=== PATIENT | male | born 1965 | race Caucasian/White ===

== ENCOUNTER → 2017-03-24 | Outpatient (CLI) | payer BC ==
--- NOTE | 2017-03-24 16:30 | KCIC ---
CT of the head without contrast, 03/24/2017: HISTORY: Postconcussive syndrome, blurred vision The ventricles are within normal limits in size. There is no shift of the midline structures. There is no evidence of acute intracranial hemorrhage or mass effect. There is calcific plaquing of the distal internal carotid and right vertebral arteries. IMPRESSION: No acute intracranial abnormality is detected. Electronically signed by: Sancho Esparza MD (03/24/2017 4:27 PM) [facility]
== END | disposition home or self-care (01) ==
LOC: KCIC CT 15:31
PROVIDERS: ATTEND Family Medicine
DX: H53.8 Other visual disturbances (principal); F07.81 Postconcussional syndrome
CPT/HCPCS: 70450

== ENCOUNTER → 2017-04-01 | Outpatient (CLI) | payer BC ==
--- NOTE | 2017-04-01 17:15 | KCIC ---
BILATERAL DUPLEX CAROTID SONOGRAPHY History: Hypertension, visual changes, dizziness Technique: Duplex sonography of the cervical portion of both carotid arteries was performed. Real-time grayscale, color flow Doppler, and Doppler spectral waveform analysis is performed. Findings: Right side: Peak systolic flow velocity of the CCA is 90 cm/sec. Peak systolic flow velocity of the ICA is 88 cm/sec. The ICA/CCA ratio is 1. Peak end diastolic flow velocity of the ICA is 18 cm/sec. The peak systolic velocity of the ECA is 166 cm/sec. Mild echogenic plaque in the common carotid artery. Left side: Peak systolic flow velocity of the CCA is 77 cm/sec. Peak systolic flow velocity of the ICA is 81 cm/sec. The ICA/CCA ratio is 1.1. Peak end diastolic flow velocity of the ICA is 23 cm/sec. Peak systolic flow velocity of the ECA is 106 cm/sec. Mild echogenic plaque in the common carotid artery. Vertebral arteries: Bilateral vertebral arteries demonstrate antegrade flow. IMPRESSION: No hemodynamically significant internal carotid artery stenosis is identified. PQRS Compliance Statement - Stenosis calculations for CT, MR and conventional angiography are based upon measurement of the distal ICA diameter in accordance with the NASCET methodology. Stenosis calculations for carotid ultrasound studies are derived from validated velocity criteria which are known to correlate with the NASCET methodology. Electronically signed by: Brent Lopez MD (04/01/2017 5:12 PM) [id number]
== END | disposition home or self-care (01) ==
LOC: KCIC US 14:43
PROVIDERS: ATTEND Family Medicine
DX: I65.23 Occlusion and stenosis of bilateral carotid arteries (principal); I10 Essential (primary) hypertension; R42 Dizziness and giddiness
CPT/HCPCS: 93880

== ENCOUNTER 2018-02-04 12:49 | Inpatient (IN) | payer BC ==
[~2018-02-04] VITALS: Ht 177.8 cm; Wt 121.6 kg
[2018-02-04] MEDS ORDERED: ASPIRIN CHEWABLE 81 MG TABLET. PO ONE (13:00)
--- NOTE | 2018-02-04 13:10 | PHYS DOC ---
Adult General Chief Complaint Chief Complaint: CHEST PAIN HPI HPI Patient is a 52 year old male presented to ER today for evaluation of left- sided chest pain radiating to his left neck off and on since Thursday. Patient said symptoms started again last night become more frequent this morning therefore he came in here for evaluation. Patient also complaint of blood pressure being high at home. He has history hypertension, he had history of blood clot disorder. He is not on blood thinner except a full dose of aspirin daily. He denies history of diabetic. No history of recent travel or operation. He denies any cough or fever. Review of Systems Review of Systems Constitutional: Denies fever or chills [] Eyes: Denies change in visual acuity, redness, or eye pain [] HENT: Denies nasal congestion or sore throat [] Respiratory: Denies cough or shortness of breath [] Cardiovascular: Positive for chest pain GI: Denies abdominal pain, nausea, vomiting, bloody stools or diarrhea [] : Denies dysuria or hematuria [] Musculoskeletal: Denies back pain or joint pain [] Integument: Denies rash or skin lesions [] Neurologic: Denies headache, focal weakness or sensory changes [] Endocrine: Denies polyuria or polydipsia [] All other systems were reviewed and found to be within normal limits, except as documented in this note. Current Medications Current Medications Current Medications Medications (Trade) Dose Ordered Sig/Dannielle Start Time Stop Time Status Last Admin Dose Admin Aspirin (Children'S Aspirin) 324 mg 1X ONCE 02/04/18 13:00 02/04/18 13:54 DC 02/04/18 13:37 243 MG Info (CONTRAST GIVEN -- Rx MONITORING) 1 each PRN DAILY PRN 02/04/18 14:00 02/06/18 13:59 Iohexol (Omnipaque 300 Mg/ml) 100 ml 1X ONCE 02/04/18 14:00 02/04/18 14:01 DC Nitroglycerin (Nitrostat) 0.4 mg PRN Q5MIN PRN 02/04/18 13:45 02/04/18 13:52 0.4 MG Allergies Allergies Allergies Coded Allergies Type Severity Reaction Last Updated Verified Penicillins Allergy Severe 02/04/18 Yes Physical Exam Physical Exam Constitutional: Well developed, well nourished, no acute distress, non-toxic appearance. [] HENT: Normocephalic, atraumatic, bilateral external ears normal, oropharynx moist, no oral exudates, nose normal. [] Eyes: PERRLA, EOMI, conjunctiva normal, no discharge. [] Neck: Normal range of motion, no tenderness, supple, no stridor. [] Cardiovascular:Heart rate regular rhythm, no murmur [] Lungs & Thorax: Bilateral breath sounds clear to auscultation [] Abdomen: Bowel sounds normal, soft, no tenderness, no masses, no pulsatile masses. [] Skin: Warm, dry, no erythema, no rash. [] Back: No tenderness, no CVA tenderness. [] Extremities: No tenderness, no cyanosis, no clubbing, ROM intact, no edema. [] Neurologic: Alert and oriented X 3, normal motor function, normal sensory function, no focal deficits noted. [] Psychologic: Affect normal, judgement normal, mood normal. [] Current Patient Data Vital Signs Vital Signs Date Time Temp Pulse Resp B/P (MAP) Pulse Ox O2 Delivery O2 Flow Rate FiO2 02/04/18 13:52 103 143/65 02/04/18 13:00 98.2 20 96 Room Air 98.2 Lab Values Laboratory Tests Test 02/04/18 13:16 White Blood Count 7.2 x10^3/uL (4.0-11.0) Red Blood Count 4.93 x10^6/uL (4.30-5.70) Hemoglobin 15.9 g/dL (13.0-17.5) Hematocrit 44.3 % (39.0-53.0) Mean Corpuscular Volume 90 fL (79-100) Mean Corpuscular Hemoglobin 32 pg (25-35) Mean Corpuscular Hemoglobin Concent 36 g/dL (31-37) Red Cell Distribution Width 12.7 % (11.5-14.5) Platelet Count 194 x10^3/uL (140-400) Neutrophils (%) (Auto) 65 % (31-73) Lymphocytes (%) (Auto) 24 % (24-48) Monocytes (%) (Auto) 9 % (0-9) Eosinophils (%) (Auto) 2 % (0-3) Basophils (%) (Auto) 1 % (0-3) Neutrophils # (Auto) 4.7 x10^3uL (1.8-7.7) Lymphocytes # (Auto) 1.7 x10^3/uL (1.0-4.8) Monocytes # (Auto) 0.7 x10^3/uL (0.0-1.1) Eosinophils # (Auto) 0.1 x10^3/uL (0.0-0.7) Basophils # (Auto) 0.1 x10^3/uL (0.0-0.2) Prothrombin Time 13.2 SEC (11.7-14.0) Prothrombin Time INR 1.1 (0.8-1.1) PTT 26 SEC (24-38) D-Dimer (Jessica) 0.51 ug/mlFEU (0.00-0.50) H Sodium Level 143 mmol/L (136-145) Potassium Level 4.3 mmol/L (3.5-5.1) Chloride Level 105 mmol/L (98-107) Carbon Dioxide Level 26 mmol/L (21-32) Anion Gap 12 (6-14) Blood Urea Nitrogen 18 mg/dL (8-26) Creatinine 0.9 mg/dL (0.7-1.3) Estimated GFR (Cockcroft-Gault) 87.9 BUN/Creatinine Ratio 20 (6-20) Glucose Level 250 mg/dL (70-99) H Calcium Level 9.4 mg/dL (8.5-10.1) Magnesium Level 1.9 mg/dL (1.8-2.4) Total Bilirubin 0.4 mg/dL (0.2-1.0) Aspartate Amino Transferase (AST) 26 U/L (15-37) Alanine Aminotransferase (ALT) 59 U/L (16-63) Alkaline Phosphatase 105 U/L (46-116) Creatine Kinase 129 U/L (39-308) Creatine Kinase MB (Mass) 1.3 ng/mL (0.0-3.6) Creatine Kinase MB Relative Index 1.0 % (0-4) Troponin I Quantitative < 0.017 ng/mL (0.000-0.055) PY-Byc-M-Type Natriuretic Peptide 40 pg/mL (0-124) Total Protein 7.4 g/dL (6.4-8.2) Albumin 3.5 g/dL (3.4-5.0) Albumin/Globulin Ratio 0.9 (1.0-1.7) L Lipase 101 U/L (73-393) Laboratory Tests 02/04/18 13:16 Laboratory Tests 02/04/18 13:16 EKG EKG EKG: RATE OF 94, SINUS RHYTHM, NO STEMI. Radiology/Procedures Radiology/Procedures [facility] [address] [place] [address] IMAGING REPORT Signed PATIENT: CARINA CORONEL ACCOUNT: [id number] : 1965 LOCATION: ER AGE: 52 SEX: M EXAM STATUS: REG ER ORD. PHYSICIAN: BROOKE SALINAS DO REASON: chest pain, soa, hx of PE PROCEDURE: CT ANGIOGRAPHY CHEST Chest CTA History: Shortness of air, chest pain Technique: After bolus of intravenous contrast, CT imaging was performed of the chest. Exam was repeated due to poor bolus although also poor bolus in the pulmonary arteries on the exam. Multiplanar reconstruction images to include MIP reconstruction images are submitted. Exposure: One or more of the following individualized dose reduction techniques were utilized for this examination: 1. Automated exposure control 2. Adjustment of the mA and/or kV according to patient size 3. Use of iterative reconstruction technique. COMPARISON: Chest CT July 22, 2007 Findings: [ ] Pulmonary arteries are suboptimally opacified with contrast on both exams. No obvious embolism is identified in the main pulmonary arteries although otherwise cannot accurately evaluate for pulmonary embolic disease. Ascending thoracic aortic caliber is borderline about 3.6 cm, no intraluminal flap. Aortic root is dilated about 4.1 cm. There is some coronary calcification. There is no pleural or pericardial effusion or pneumothorax. There is no lobar consolidation. No significantly enlarged nodes are identified of the chest. There is likely hepatic steatosis. There has been cholecystectomy. There be mild hazy density of the central mesenteric fat as suggested on the last image although not fully included. Major airways are patent. Impression: 1. Pulmonary arteries are not well opacified with contrast even on repeated images, essentially nondiagnostic evaluation for pulmonary embolic disease. There is no obvious embolism in the main pulmonary arteries. 2. There is coronary calcification. Aortic root is dilated about 4.1 cm. 3. There is hepatic steatosis. 4. There could be mild hazy density of the central abdominal mesenteric fat although only seen on the last image obtained. Electronically signed by: Zeke Frederick MD (02/04/2018 2:58 PM) [facility] DICTATED and SIGNED BY: ZEKE FREDERICK MD DATE: 02/04/18 1450 Course & Med Decision Making Course & Med Decision Making Pertinent Labs and Imaging studies reviewed. (See chart for details) [] Dragon Disclaimer Dragon Disclaimer This electronic medical record was generated, in whole or in part, using a voice recognition dictation system. Departure Departure Impression: Primary Impression: Chest pain Disposition: ADMITTED INPATIENT Admitting Physician: Janis Low Condition: STABLE Referrals: Maribell LOW MD (PCP) BROOKE SALINAS DO Feb 04, 2018 13:10
--- NOTE | 2018-02-04 13:23 | EKG ---
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
[2018-02-04 13:26] LABS: BASO # 0.1 x10^3/uL (0.0-0.2); BASO % 1 % (0-3); EOS # 0.1 x10^3/uL (0.0-0.7); EOS % 2 % (0-3); HEMATOCRIT 44.3 % (39.0-53.0); HEMOGLOBIN 15.9 g/dL (13.0-17.5); LYMPH # 1.7 x10^3/uL (1.0-4.8); LYMPH % 24 % (24-48); MEAN CORPUSCULAR HEMOGLOBIN 32 pg (25-35); MEAN CORPUSCULAR HGB CONC 36 g/dL (31-37); MEAN CORPUSCULAR VOLUME 90 fL (79-100); MONO # 0.7 x10^3/uL (0.0-1.1); MONO % 9 % (0-9); NEUT # 4.7 x10^3uL (1.8-7.7); NEUT % 65 % (31-73); PLATELET COUNT 194 x10^3/uL (140-400); RED BLOOD COUNT 4.93 x10^6/uL (4.30-5.70); RED CELL DISTRIBUTION WIDTH 12.7 % (11.5-14.5); WHITE BLOOD COUNT 7.2 x10^3/uL (4.0-11.0)
[2018-02-04 13:36] LABS: CALCIUM 9.4 mg/dL (8.5-10.1); CREATININE 0.9 mg/dL (0.7-1.3); GFR 87.9; POTASSIUM 4.3 mmol/L (3.5-5.1)
--- NOTE | 2018-02-04 13:37 | RAD ---
EXAM: Chest, single view. HISTORY: Chest pain. COMPARISON: None. FINDINGS: A frontal view of the chest is obtained. There is no infiltrate, pleural effusion or pneumothorax. The heart is normal in size. IMPRESSION: No acute pulmonary finding. Electronically signed by: Carla Hills MD (02/04/2018 1:34 PM) [place] [id number]
[2018-02-04 13:39] LABS: PROTHROMBIN TIME PATIENT 13.2 SEC (11.7-14.0)
[2018-02-04] MEDS: NITROGLYCERIN SUBLINGUAL 0.4 MG BOTTLE OF 25. SL PRN ×5 (13:39→19:23)
[2018-02-04 13:44] LABS: ALBUMIN 3.5 g/dL (3.4-5.0); ALBUMIN/GLOBULIN RATIO 0.9 (1.0-1.7); MAGNESIUM 1.9 mg/dL (1.8-2.4); TOTAL BILIRUBIN 0.4 mg/dL (0.2-1.0); TOTAL PROTEIN 7.4 g/dL (6.4-8.2)
[2018-02-04 13:54] LABS: D-DIMER 0.51 ug/mlFEU (0.00-0.50)
[2018-02-04] MEDS ORDERED: IOHEXOL 300 MG/ML 100ML VIAL. IV ONE (14:00)
[2018-02-04] MEDS ORDERED: CONTRAST GIVEN. MC PRN (14:00)
--- NOTE | 2018-02-04 15:02 | RAD ---
Chest CTA History: Shortness of air, chest pain Technique: After bolus of intravenous contrast, CT imaging was performed of the chest. Exam was repeated due to poor bolus although also poor bolus in the pulmonary arteries on the exam. Multiplanar reconstruction images to include MIP reconstruction images are submitted. Exposure: One or more of the following individualized dose reduction techniques were utilized for this examination: 1. Automated exposure control 2. Adjustment of the mA and/or kV according to patient size 3. Use of iterative reconstruction technique. COMPARISON: Chest CT July 22, 2007 Findings: [ ] Pulmonary arteries are suboptimally opacified with contrast on both exams. No obvious embolism is identified in the main pulmonary arteries although otherwise cannot accurately evaluate for pulmonary embolic disease. Ascending thoracic aortic caliber is borderline about 3.6 cm, no intraluminal flap. Aortic root is dilated about 4.1 cm. There is some coronary calcification. There is no pleural or pericardial effusion or pneumothorax. There is no lobar consolidation. No significantly enlarged nodes are identified of the chest. There is likely hepatic steatosis. There has been cholecystectomy. There be mild hazy density of the central mesenteric fat as suggested on the last image although not fully included. Major airways are patent. Impression: 1. Pulmonary arteries are not well opacified with contrast even on repeated images, essentially nondiagnostic evaluation for pulmonary embolic disease. There is no obvious embolism in the main pulmonary arteries. 2. There is coronary calcification. Aortic root is dilated about 4.1 cm. 3. There is hepatic steatosis. 4. There could be mild hazy density of the central abdominal mesenteric fat although only seen on the last image obtained. Electronically signed by: Manuel Sumner MD (02/04/2018 2:58 PM) [facility]
[2018-02-04 15:10] LABS: BILIRUBIN,URINE NEGATIVE (NEG); CLARITY,URINE CLEAR; COLOR,URINE YELLOW; NITRITE,URINE NEGATIVE (NEG); PH,URINE 5.5; PROTEIN,URINE NEGATIVE (NEG-TRACE); UROBILINOGEN,URINE 0.2 mg/dL (0.2 mg/dL)
[2018-02-04] MEDS ORDERED: MORPHINE SULFATE 4 MG/ML VIAL. IV PRN ×2 (15:15→20:15)
[2018-02-04 15:18] LABS: BACTERIA,URINE 0 /HPF (0-FEW); RBC,URINE 0 /HPF (0-2); WBC,URINE 0 /HPF (0-4)
[2018-02-04] MEDS: ONDANSETRON PF 4 MG/2 ML VIAL. IV PRN (15:55)
[2018-02-04 17:00] VITALS: BP 170/94
[2018-02-04] MEDS ORDERED: ASPI325T8 PO (17:41)
[2018-02-04] MEDS ORDERED: LOSA100T7 PO (17:41)
[2018-02-04] MEDS ORDERED: DEXTROSE 50% 25 GM / 50ML DISP.SYRIN. IV PRN (18:30)
[2018-02-04] MEDS: INSULIN LISPRO 300 UNITS/3 ML INSULN.PEN. SQ SCH (18:30)
[2018-02-04 19:17] VITALS: BP 180/88
[2018-02-04 19:30] VITALS: BP 163/86
[2018-02-04 20:53] VITALS: BP 176/100
[2018-02-04 21:35] VITALS: BP 167/100
[2018-02-04 23:13] VITALS: BP 165/98
[2018-02-05] VITALS (7 sets, daily range): BP systolic 139–195; BP diastolic 83–106
[2018-02-05] MEDS: ACETAMINOPHEN 500 MG TABLET PO PRN ×3 (01:09→18:28)
[2018-02-05] MEDS: MORPHINE SULFATE 2 MG/ML VIAL. IV PRN ×2 (01:09→04:44)
--- NOTE | 2018-02-05 06:08 | EKG ---
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
[2018-02-05] MEDS: INSULIN LISPRO 300 UNITS/3 ML INSULN.PEN. SQ SCH ×4 (07:47→17:00)
--- NOTE | 2018-02-05 07:53 | EKG ---
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
[2018-02-05] MEDS: ASPIRIN 325 MG TABLET PO SCH (08:00)
[2018-02-05] MEDS: LOSARTAN POTASSIUM 50 MG TABLET. PO SCH (08:19)
[2018-02-05] MEDS: NITROGLYCERIN SUBLINGUAL 0.4 MG BOTTLE OF 25. SL PRN (08:21)
[2018-02-05] MEDS ORDERED: DEXTROSE 50% 25 GM / 50ML DISP.SYRIN. IV PRN (09:00)
--- NOTE | 2018-02-05 09:10 | PDOC2 ---
JUAN ANTONIO MALAGON AGRICULTURAL SPECIALIST 02/05/18 0910: CARDIAC CONSULT DATE OF CONSULT Date of Consult DATE: 02/05/18 TIME: 08:57 REASON FOR CONSULT Reason for Consult: Chest pain REFERRING PHYSICIAN Referring Physician: Kitty SOURCE Source: Chart review, Patient HISTORY OF PRESENT ILLNESS HISTORY OF PRESENT ILLNESS This is a pleasant 52 yo male admitted for complains of chest pain. Reports that he has been having left neck, shoulder and arm discomfort in the last 5 days. He has left chest pressure with occasional stabbing discomfort to both sides of his chest. His pain has been persistent and is associated with nausea and diaphoresis although no significant EASLEY. 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 Denies any recent injury, MVA or recent infections. He takes losartan and ASA at home otherwise no hx of DM or HLP. He has gained about 10-15 pounds in the last year. Denies having SACHI but he does have problem sleeping at night and nobody could attest his sleeping behavior. Denies any bleeding problems, NSAID therapy. PAST MEDICAL HISTORY Cardiovascular: HTN Pulmonary: Pulmonary embolus (DVT 12 yrs ago) Heme/Onc: Other (antiphospholipid syndrome) Hepatobiliary: Cholelithiasis PAST SURGICAL HISTORY Past Surgical History: Cholecystectomy FAMILY HISTORY Family History: Coronary Artery Disease (SCD father in his 40s. ) SOCIAL HISTORY Smoke: No ALCOHOL: occassional Drugs: None Lives: Alone CURRENT MEDICATIONS CURRENT MEDICATIONS Current Medications Medications (Trade) Dose Ordered Sig/Dannielle Route PRN Reason Start Time Stop Time Status Last Admin Dose Admin Aspirin (Children'S Aspirin) 324 mg 1X ONCE PO 02/04/18 13:00 02/04/18 13:54 DC 02/04/18 13:37 Nitroglycerin (Nitrostat) 0.4 mg PRN Q5MIN PRN SL CHEST PAIN 02/04/18 13:45 02/05/18 08:21 Ondansetron HCl (Zofran) 4 mg PRN Q8HRS PRN IV NAUSEA/VOMITING 02/04/18 15:15 02/05/18 15:14 02/04/18 15:55 Morphine Sulfate (Morphine Sulfate) 4 mg PRN Q6HRS PRN IV PAIN 02/04/18 15:15 02/04/18 20:19 DC 02/04/18 15:55 Losartan Potassium (Cozaar) 100 mg DAILY PO 02/05/18 09:00 02/05/18 08:19 Acetaminophen (Tylenol) 1,000 mg PRN Q6HRS PRN PO HEADACHE 02/04/18 20:15 02/05/18 08:27 Morphine Sulfate (Morphine Sulfate) 2 mg PRN Q4HRS PRN IV MODERATE PAIN 02/04/18 20:15 02/05/18 04:44 Morphine Sulfate (Morphine Sulfate) 4 mg PRN Q4HRS PRN IV SEVERE PAIN 02/04/18 20:15 02/04/18 20:32 ALLERGIES ALLERGIES: Coded Allergies: Penicillins (Verified Allergy, Severe, 02/04/18) ROS Review of System 14 point ROS evaluated with pertinent positives noted per HPI PHYSICAL EXAM General: Alert, Oriented X3, Cooperative, No acute distress HEENT: Atraumatic, Mucous membr. moist/pink Lungs: Clear to auscultation, Normal air movement Heart: Regular rate (SR), Normal S1, Normal S2, No murmurs Abdomen: Soft, No tenderness Extremities: No cyanosis, No edema Skin: No breakdown, No significant lesion Neuro: Normal speech, Sensation intact Psych/Mental Status: Mental status NL, Mood NL MUSCULOSKELETAL: Osteoarthritic changes both hands VITALS VITALS Vital Signs Date Time Temp Pulse Resp B/P (MAP) Pulse Ox O2 Delivery O2 Flow Rate FiO2 02/05/18 08:21 67 167/104 02/05/18 08:00 Room Air 02/05/18 07:44 97.8 20 94 97.8 LABS Lab: Laboratory Tests Test 02/04/18 13:16 02/04/18 14:50 02/04/18 20:05 02/04/18 20:59 White Blood Count 7.2 x10^3/uL (4.0-11.0) Red Blood Count 4.93 x10^6/uL (4.30-5.70) Hemoglobin 15.9 g/dL (13.0-17.5) Hematocrit 44.3 % (39.0-53.0) Mean Corpuscular Volume 90 fL (79-100) Mean Corpuscular Hemoglobin 32 pg (25-35) Mean Corpuscular Hemoglobin Concent 36 g/dL (31-37) Red Cell Distribution Width 12.7 % (11.5-14.5) Platelet Count 194 x10^3/uL (140-400) Neutrophils (%) (Auto) 65 % (31-73) Lymphocytes (%) (Auto) 24 % (24-48) Monocytes (%) (Auto) 9 % (0-9) Eosinophils (%) (Auto) 2 % (0-3) Basophils (%) (Auto) 1 % (0-3) Neutrophils # (Auto) 4.7 x10^3uL (1.8-7.7) Lymphocytes # (Auto) 1.7 x10^3/uL (1.0-4.8) Monocytes # (Auto) 0.7 x10^3/uL (0.0-1.1) Eosinophils # (Auto) 0.1 x10^3/uL (0.0-0.7) Basophils # (Auto) 0.1 x10^3/uL (0.0-0.2) Prothrombin Time 13.2 SEC (11.7-14.0) Prothromb Time International Ratio 1.1 (0.8-1.1) Activated Partial Thromboplast Time 26 SEC (24-38) D-Dimer (Jessica) 0.51 ug/mlFEU (0.00-0.50) Sodium Level 143 mmol/L (136-145) Potassium Level 4.3 mmol/L (3.5-5.1) Chloride Level 105 mmol/L (98-107) Carbon Dioxide Level 26 mmol/L (21-32) Anion Gap 12 (6-14) Blood Urea Nitrogen 18 mg/dL (8-26) Creatinine 0.9 mg/dL (0.7-1.3) Estimated GFR (Cockcroft-Gault) 87.9 BUN/Creatinine Ratio 20 (6-20) Glucose Level 250 mg/dL (70-99) Calcium Level 9.4 mg/dL (8.5-10.1) Magnesium Level 1.9 mg/dL (1.8-2.4) Total Bilirubin 0.4 mg/dL (0.2-1.0) Aspartate Amino Transf (AST/SGOT) 26 U/L (15-37) Alanine Aminotransferase (ALT/SGPT) 59 U/L (16-63) Alkaline Phosphatase 105 U/L (46-116) Creatine Kinase 129 U/L (39-308) Creatine Kinase MB (Mass) 1.3 ng/mL (0.0-3.6) Creatine Kinase MB Relative Index 1.0 % (0-4) Troponin I Quantitative < 0.017 ng/mL (0.000-0.055) < 0.017 ng/mL (0.000-0.055) BD-Pwq-T-Type Natriuretic Peptide 40 pg/mL (0-124) Total Protein 7.4 g/dL (6.4-8.2) Albumin 3.5 g/dL (3.4-5.0) Albumin/Globulin Ratio 0.9 (1.0-1.7) Lipase 101 U/L (73-393) Urine Collection Type Unknown Urine Color Yellow Urine Clarity Clear Urine pH 5.5 Urine Specific [place] >=1.030 Urine Protein Negative mg/dL (NEG-TRACE) Urine Glucose (UA) >=1000 mg/dL (NEG) Urine Ketones (Stick) Negative mg/dL (NEG) Urine Blood Negative (NEG) Urine Nitrite Negative (NEG) Urine Bilirubin Negative (NEG) Urine Urobilinogen Dipstick 0.2 mg/dL (0.2 mg/dL) Urine Leukocyte Esterase Negative (NEG) Urine RBC 0 /HPF (0-2) Urine WBC 0 /HPF (0-4) Urine Bacteria 0 /HPF (0-FEW) Urine Mucus Mod /LPF Glucose (Fingerstick) 217 mg/dL (70-99) Test 02/05/18 02:30 02/05/18 06:29 02/05/18 07:07 Troponin I Quantitative < 0.017 ng/mL (0.000-0.055) Glucose (Fingerstick) 168 mg/dL (70-99) 174 mg/dL (70-99) ASSESSMENT/PLAN ASSESSMENT/PLAN 1. Chest pain: UA features 2. HTN: labile 3. DM2/HLP: new. per PCP 4. Morbid obesity: BMI 5. Hx of DVT/PE with antiphospholipid syndrome: last episode 12 yrs ago. no anticoagulation currently but with ASA. 6. Family hx of SCA: 40s father Recommendations 1. A1C, TSH, lipids. TTE 2. LHC today, risks and benefits explained agreeable to proceed. 3. Dietitian consult. Wt loss. 4. Will reeval BP meds post C findings. Will continue losartan 5. ASA, statin. SHAE BRIONES MD 02/05/18 1250: CARDIAC CONSULT ASSESSMENT/PLAN ASSESSMENT/PLAN Patient seen and examined. Agree with ACCESS REP's assessment and plan. Chest pain with typical features concerning for unstable angina. Myocardial infarction has been ruled out. He has multiple cardiovascular risk factors. Plan for cardiac catheterization and possible angioplasty. Risks and benefits explained. Thank you for your consultation. JUAN ANTONIO MALAGON APRN Feb 05, 2018 09:10 SHAE BRIONES MD Feb 05, 2018 12:50
--- NOTE | 2018-02-05 09:13 | PDOC ---
PROGRESS NOTES Subjective Subjective Patient reports some pain in left chest persists but not as strong as it was. Objective Objective Vital Signs Date Time Temp Pulse Resp B/P (MAP) Pulse Ox O2 Delivery O2 Flow Rate FiO2 02/05/18 08:21 67 167/104 02/05/18 08:00 Room Air 02/05/18 07:44 97.8 20 94 97.8 Intake and Output 02/05/18 07:00 Output Total 1450 ml Balance -1450 ml Output Urine Total 1450 ml Physical Exam Abdomen: Normal bowel sounds, Soft, No tenderness Heart: Regular rate Extremities: No edema General: Alert, Oriented X3, No acute distress Lungs: Clear to auscultation Assessment Assessment Problems Medical Problems: (1) Chest pain Status: Acute Plan Plan of Care 1. Chest pain - Troponin negative. Some pain persists. To have cardiac cath today per Cardiology. 2. DM2 - new diagnosis with random glucose of 250 at admission. Has history of glucose intolerance. Checking A1C, follow FSBG and start po meds as appropriate. 3. antiphospholipid antibody syndrome - remote hx of DVT, has apparently been stable for years on ASA daily. 4. HTN - continue home medication and adjust as indicated. Comment Review of Relevant I have reviewed the following items kel (where applicable) has been applied. Labs Laboratory Tests Test 02/04/18 13:16 02/04/18 14:50 02/04/18 20:05 02/04/18 20:59 White Blood Count 7.2 x10^3/uL (4.0-11.0) Red Blood Count 4.93 x10^6/uL (4.30-5.70) Hemoglobin 15.9 g/dL (13.0-17.5) Hematocrit 44.3 % (39.0-53.0) Mean Corpuscular Volume 90 fL (79-100) Mean Corpuscular Hemoglobin 32 pg (25-35) Mean Corpuscular Hemoglobin Concent 36 g/dL (31-37) Red Cell Distribution Width 12.7 % (11.5-14.5) Platelet Count 194 x10^3/uL (140-400) Neutrophils (%) (Auto) 65 % (31-73) Lymphocytes (%) (Auto) 24 % (24-48) Monocytes (%) (Auto) 9 % (0-9) Eosinophils (%) (Auto) 2 % (0-3) Basophils (%) (Auto) 1 % (0-3) Neutrophils # (Auto) 4.7 x10^3uL (1.8-7.7) Lymphocytes # (Auto) 1.7 x10^3/uL (1.0-4.8) Monocytes # (Auto) 0.7 x10^3/uL (0.0-1.1) Eosinophils # (Auto) 0.1 x10^3/uL (0.0-0.7) Basophils # (Auto) 0.1 x10^3/uL (0.0-0.2) Prothrombin Time 13.2 SEC (11.7-14.0) Prothromb Time International Ratio 1.1 (0.8-1.1) Activated Partial Thromboplast Time 26 SEC (24-38) D-Dimer (Jessica) 0.51 ug/mlFEU (0.00-0.50) Sodium Level 143 mmol/L (136-145) Potassium Level 4.3 mmol/L (3.5-5.1) Chloride Level 105 mmol/L (98-107) Carbon Dioxide Level 26 mmol/L (21-32) Anion Gap 12 (6-14) Blood Urea Nitrogen 18 mg/dL (8-26) Creatinine 0.9 mg/dL (0.7-1.3) Estimated GFR (Cockcroft-Gault) 87.9 BUN/Creatinine Ratio 20 (6-20) Glucose Level 250 mg/dL (70-99) Calcium Level 9.4 mg/dL (8.5-10.1) Magnesium Level 1.9 mg/dL (1.8-2.4) Total Bilirubin 0.4 mg/dL (0.2-1.0) Aspartate Amino Transf (AST/SGOT) 26 U/L (15-37) Alanine Aminotransferase (ALT/SGPT) 59 U/L (16-63) Alkaline Phosphatase 105 U/L (46-116) Creatine Kinase 129 U/L (39-308) Creatine Kinase MB (Mass) 1.3 ng/mL (0.0-3.6) Creatine Kinase MB Relative Index 1.0 % (0-4) Troponin I Quantitative < 0.017 ng/mL (0.000-0.055) < 0.017 ng/mL (0.000-0.055) SC-Msd-J-Type Natriuretic Peptide 40 pg/mL (0-124) Total Protein 7.4 g/dL (6.4-8.2) Albumin 3.5 g/dL (3.4-5.0) Albumin/Globulin Ratio 0.9 (1.0-1.7) Lipase 101 U/L (73-393) Urine Collection Type Unknown Urine Color Yellow Urine Clarity Clear Urine pH 5.5 Urine Specific [place] >=1.030 Urine Protein Negative mg/dL (NEG-TRACE) Urine Glucose (UA) >=1000 mg/dL (NEG) Urine Ketones (Stick) Negative mg/dL (NEG) Urine Blood Negative (NEG) Urine Nitrite Negative (NEG) Urine Bilirubin Negative (NEG) Urine Urobilinogen Dipstick 0.2 mg/dL (0.2 mg/dL) Urine Leukocyte Esterase Negative (NEG) Urine RBC 0 /HPF (0-2) Urine WBC 0 /HPF (0-4) Urine Bacteria 0 /HPF (0-FEW) Urine Mucus Mod /LPF Glucose (Fingerstick) 217 mg/dL (70-99) Test 02/05/18 02:30 02/05/18 06:29 02/05/18 07:07 Troponin I Quantitative < 0.017 ng/mL (0.000-0.055) Glucose (Fingerstick) 168 mg/dL (70-99) 174 mg/dL (70-99) Laboratory Tests Test 02/04/18 13:16 02/04/18 14:50 02/04/18 20:05 02/04/18 20:59 White Blood Count 7.2 x10^3/uL (4.0-11.0) Red Blood Count 4.93 x10^6/uL (4.30-5.70) Hemoglobin 15.9 g/dL (13.0-17.5) Hematocrit 44.3 % (39.0-53.0) Mean Corpuscular Volume 90 fL (79-100) Mean Corpuscular Hemoglobin 32 pg (25-35) Mean Corpuscular Hemoglobin Concent 36 g/dL (31-37) Red Cell Distribution Width 12.7 % (11.5-14.5) Platelet Count 194 x10^3/uL (140-400) Neutrophils (%) (Auto) 65 % (31-73) Lymphocytes (%) (Auto) 24 % (24-48) Monocytes (%) (Auto) 9 % (0-9) Eosinophils (%) (Auto) 2 % (0-3) Basophils (%) (Auto) 1 % (0-3) Neutrophils # (Auto) 4.7 x10^3uL (1.8-7.7) Lymphocytes # (Auto) 1.7 x10^3/uL (1.0-4.8) Monocytes # (Auto) 0.7 x10^3/uL (0.0-1.1) Eosinophils # (Auto) 0.1 x10^3/uL (0.0-0.7) Basophils # (Auto) 0.1 x10^3/uL (0.0-0.2) Prothrombin Time 13.2 SEC (11.7-14.0) Prothromb Time International Ratio 1.1 (0.8-1.1) Activated Partial Thromboplast Time 26 SEC (24-38) D-Dimer (Jessica) 0.51 ug/mlFEU (0.00-0.50) Sodium Level 143 mmol/L (136-145) Potassium Level 4.3 mmol/L (3.5-5.1) Chloride Level 105 mmol/L (98-107) Carbon Dioxide Level 26 mmol/L (21-32) Anion Gap 12 (6-14) Blood Urea Nitrogen 18 mg/dL (8-26) Creatinine 0.9 mg/dL (0.7-1.3) Estimated GFR (Cockcroft-Gault) 87.9 BUN/Creatinine Ratio 20 (6-20) Glucose Level 250 mg/dL (70-99) Calcium Level 9.4 mg/dL (8.5-10.1) Magnesium Level 1.9 mg/dL (1.8-2.4) Total Bilirubin 0.4 mg/dL (0.2-1.0) Aspartate Amino Transf (AST/SGOT) 26 U/L (15-37) Alanine Aminotransferase (ALT/SGPT) 59 U/L (16-63) Alkaline Phosphatase 105 U/L (46-116) Creatine Kinase 129 U/L (39-308) Creatine Kinase MB (Mass) 1.3 ng/mL (0.0-3.6) Creatine Kinase MB Relative Index 1.0 % (0-4) Troponin I Quantitative < 0.017 ng/mL (0.000-0.055) < 0.017 ng/mL (0.000-0.055) ML-Eph-A-Type Natriuretic Peptide 40 pg/mL (0-124) Total Protein 7.4 g/dL (6.4-8.2) Albumin 3.5 g/dL (3.4-5.0) Albumin/Globulin Ratio 0.9 (1.0-1.7) Lipase 101 U/L (73-393) Urine Collection Type Unknown Urine Color Yellow Urine Clarity Clear Urine pH 5.5 Urine Specific [place] >=1.030 Urine Protein Negative mg/dL (NEG-TRACE) Urine Glucose (UA) >=1000 mg/dL (NEG) Urine Ketones (Stick) Negative mg/dL (NEG) Urine Blood Negative (NEG) Urine Nitrite Negative (NEG) Urine Bilirubin Negative (NEG) Urine Urobilinogen Dipstick 0.2 mg/dL (0.2 mg/dL) Urine Leukocyte Esterase Negative (NEG) Urine RBC 0 /HPF (0-2) Urine WBC 0 /HPF (0-4) Urine Bacteria 0 /HPF (0-FEW) Urine Mucus Mod /LPF Glucose (Fingerstick) 217 mg/dL (70-99) Test 02/05/18 02:30 02/05/18 06:29 02/05/18 07:07 Troponin I Quantitative < 0.017 ng/mL (0.000-0.055) Glucose (Fingerstick) 168 mg/dL (70-99) 174 mg/dL (70-99) Medications Current Medications Aspirin (Children'S Aspirin) 324 mg 1X ONCE PO Last administered on at 13:37; Start 02/04/18 at 13:00; Stop 02/04/18 at 13:54; Status DC Nitroglycerin (Nitrostat) 0.4 mg PRN Q5MIN PRN SL CHEST PAIN Last administered on 02/05/18at 08:21; Start 02/04/18 at 13:45 Iohexol (Omnipaque 300 Mg/ml) 100 ml 1X ONCE IV ; Start 02/04/18 at 14:00; Stop 02/04/18 at 14:01; Status DC Info (CONTRAST GIVEN -- Rx MONITORING) 1 each PRN DAILY PRN MC SEE COMMENTS; Start 02/04/18 at 14:00; Stop 02/06/18 at 13:59 Ondansetron HCl (Zofran) 4 mg PRN Q8HRS PRN IV NAUSEA/VOMITING Last administered on 02/04/18at 15:55; Start 02/04/18 at 15:15; Stop 02/05/18 at 15 :14 Morphine Sulfate (Morphine Sulfate) 4 mg PRN Q6HRS PRN IV PAIN Last administered on 02/04/18at 15:55; Start 02/04/18 at 15:15; Stop 02/04/18 at 20 :19; Status DC Aspirin (Kacie Aspirin) 325 mg DAILY08 PO ; Start 02/05/18 at 08:00 Losartan Potassium (Cozaar) 100 mg DAILY PO Last administered on 02/05/18at 08: 19; Start 02/05/18 at 09:00 Influenza Virus Vaccine (Afluria Trivalent 2467-7129 Syringe) 0.5 ml ONCE ONCE VAX IM ; Start 02/05/18 at 09:00; Stop 02/05/18 at 09:01; Status DC Insulin Human Lispro (HumaLOG) 0-5 UNITS TIDWMEALS SQ ; Start 02/04/18 at 18:30 ; Stop 02/05/18 at 08:55; Status DC Dextrose (Dextrose 50%-Water Syringe) 12.5 gm PRN Q15MIN PRN IV SEE COMMENTS; Start 02/04/18 at 18:30; Stop 02/05/18 at 08:54; Status DC Labetalol HCl (Normodyne Iv Push) 10 mg PRN Q6HRS PRN IVP GIVE FOR SBP > 170; Start 02/04/18 at 20:15 Acetaminophen (Tylenol) 1,000 mg PRN Q6HRS PRN PO HEADACHE Last administered on 02/05/18at 08:27; Start 02/04/18 at 20:15 Morphine Sulfate (Morphine Sulfate) 2 mg PRN Q4HRS PRN IV MODERATE PAIN Last administered on 02/05/18at 04:44; Start 02/04/18 at 20:15 Morphine Sulfate (Morphine Sulfate) 4 mg PRN Q4HRS PRN IV SEVERE PAIN Last administered on 02/04/18at 20:32; Start 02/04/18 at 20:15 Insulin Human Lispro (HumaLOG) 0-5 UNITS TIDWMEALS SQ ; Start 02/05/18 at 09:00 Dextrose (Dextrose 50%-Water Syringe) 12.5 gm PRN Q15MIN PRN IV SEE COMMENTS; Start 02/05/18 at 09:00 Active Scripts Active Reported Aspirin 325 Mg Tablet 1 Tab PO DAILY Losartan Potassium 100 Mg Tablet 100 Mg PO DAILY Vitals/I & O Vital Sign - Last 24 Hours 02/04/18 02/04/18 02/04/18 02/04/18 13:00 13:39 13:45 13:52 Temp 98.2 98.2 Pulse 86 82 102 103 Resp 20 B/P (MAP) 169/95 (119) 176/78 157/70 143/65 Pulse Ox 96 O2 Delivery Room Air 02/04/18 02/04/18 02/04/18 02/04/18 15:08 15:55 16:17 17:00 Temp 98.3 98.3 Pulse 80 72 72 Resp 16 13 16 22 B/P (MAP) 135/78 (97) 147/82 (103) 170/94 (119) Pulse Ox 98 98 98 96 O2 Delivery Room Air 02/04/18 02/04/18 02/04/18 02/04/18 17:16 17:46 19:17 19:23 Temp 97.8 97.8 Pulse 84 78 78 Resp 22 B/P (MAP) 170/94 180/88 (118) 180/88 Pulse Ox 95 O2 Delivery Room Air Room Air 02/04/18 02/04/18 02/04/18 02/04/18 19:30 20:00 20:32 20:53 Pulse 84 76 Resp 20 B/P (MAP) 163/86 (111) 176/100 (125) O2 Delivery Room Air 02/04/18 02/04/18 02/04/18 02/05/18 21:02 21:35 23:13 01:09 Temp 98.4 98.4 Pulse 72 79 Resp 20 20 20 B/P (MAP) 167/100 (122) 165/98 (120) Pulse Ox 96 O2 Delivery Room Air 02/05/18 02/05/18 02/05/18 02/05/18 03:55 04:44 05:14 07:44 Temp 98.2 97.8 98.2 97.8 Pulse 66 67 Resp 20 20 20 20 B/P (MAP) 149/103 (118) 167/104 (125) Pulse Ox 95 94 O2 Delivery Room Air Room Air 02/05/18 02/05/18 02/05/18 08:00 08:19 08:21 Pulse 67 67 B/P (MAP) 167/104 167/104 O2 Delivery Room Air Intake and Output 02/04/18 02/04/18 02/05/18 15:00 23:00 07:00 Output Total 1450 ml Balance -1450 ml LISANDRA CORTÉS MD Feb 05, 2018 09:13
[2018-02-05 09:17] LABS: CHOLESTEROL/HDL RATIO 6.2
--- NOTE | 2018-02-05 10:09 | HP ---
ADMIT DATE: 02/04/2018 CHIEF COMPLAINT: Chest pain. HISTORY OF PRESENT ILLNESS: The patient is a 52-year-old male who presented to our office on the day of admission with the above complaint. He reported a several-day history of persistent pain in the left chest with some radiation into his neck. He had continued to go to work and do his usual activities, but started to feel more uncomfortable with the pain. When seen in our office, he was hypertensive and appeared somewhat anxious and uncomfortable and he was advised to present to the Emergency Room. Initial evaluation there included a troponin that was within normal limits and he was admitted for further care. PAST MEDICAL HISTORY: Glucose intolerance, hypertension, hyperlipidemia, antiphospholipid antibody syndrome, previous DVT and PE in 2005. PAST SURGICAL HISTORY: None noted. ALLERGIES: The patient is allergic to PENICILLIN. HOME MEDICATIONS: Aspirin 325 mg daily, losartan 100 mg daily. FAMILY HISTORY: Positive for coronary artery disease in his father. SOCIAL HISTORY: The patient is single. 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 He does not smoke cigarettes or drink alcohol to excess. REVIEW OF SYSTEMS: The patient denies fever or chills. He denies cough or shortness of breath. He denies abdominal pain, nausea or vomiting. He denies lower extremity edema. He has been taking his medications daily and reports that his blood pressure is usually 130s-140s systolic on the losartan. He has not really been watching his diet for sugar. PHYSICAL EXAMINATION: GENERAL: The patient is alert and oriented x 3, resting in bed, in no acute distress. He does appear mildly uncomfortable at times. HEENT: PERRL, EOMI, sclerae clear. Oropharynx: Mucous membranes moist. NECK: Supple, without lymphadenopathy. CHEST: Clear to auscultation. CARDIOVASCULAR: Regular rhythm without murmur. ABDOMEN: Soft, nontender, normoactive bowel sounds are present. EXTREMITIES: Without edema. ASSESSMENT AND PLAN: 1. Chest pain. The patient's troponin remains negative. He reports that the pain has improved somewhat, but there is discomfort still present. He has been seen in consultation by Cardiology and will undergo cardiac catheterization today for further evaluation. 2. Diabetes mellitus type 2. This is a new diagnosis for the patient with a nonfasting glucose of 250 at admission. We will check an A1c. Sliding scale insulin and fingersticks have been ordered and we will initiate oral medication for this as appropriate. 3. Antiphospholipid antibody syndrome. The patient does have a remote history of deep venous thrombosis, but he has been stable for years on full strength aspirin daily. We will continue this. 4. Hypertension. Continue home medication and adjust as indicated. LISANDRA CORTÉS MD DR: GUILHERME/madison JOB#: [id number] / [id number] SACHA
--- NOTE | 2018-02-05 10:48 | CARD ---
MR#: [id number] Date of Study: 02/05/2018 Ordering Physician: JUAN ANTONIO MALAGON, Referring Physician: Lexi MANJARREZ Tech: Faye Marrero RDCS APPROVED REPORT EXAM: Two-dimensional and M-mode echocardiogram with Doppler and color Doppler. Other Information Quality : GoodHR: 73bpm Rhythm : NSRTechnically limited study due to body habitus. INDICATION Chest Pain 2D DIMENSIONS RVDd2.8 (2.9-3.5cm)IVSd1.1 (0.7-1.1cm) Aortic Root(2D)3.6 (2.0-3.7cm)LVDd4.9 (3.9-5.9cm) LVOT Diameter2.2 (1.8-2.4cm)PWd1.1 (0.7-1.1cm) LVDs3.2 (2.5-4.0cm)FS (%) 35.1 % SV71.0 mlLVEF(%)64.3 (>50%) M-Mode DIMENSIONS Left Atrium(MM)3.13 (2.5-4.0cm)Aortic Root3.95 (2.2-3.7cm) Aortic Valve AoV Peak Ian.169.8cm/sAoV VTI33.9cm AO Peak GR.11.5mmHgLVOT Peak Ian.118.4cm/s AO Mean GR.7mmHgAVA (VMAX)2.77cm2 BRYAN (VTI)2.90cm2 Mitral Valve MV E Lutmlhno40.8cm/sMV E Peak Gr.3mmHg MV DECEL [id number] A Qrxonkln05.7cm/s MV E Mean Gr.1mmHgE/A Ratio1.2 MV A [id number] Pulmonary Valve PV Peak Llnlppmf779.5cm/s Pulmonary Vein S1 Pqtunucs84.0cm/sD2 Bojervpb60.0cm/s PVa [id number] LEFT VENTRICLE The left ventricle is normal size. There is borderline concentric left ventricular hypertrophy. The l eft ventricular systolic function is normal and the ejection fraction is within normal range. The Eje ction Fraction is 60-65%. There is normal LV segmental wall motion. Transmitral Doppler flow pattern is Grade I-abnormal relaxation pattern. RIGHT VENTRICLE The right ventricle is normal size. There is normal right ventricular wall thickness. The right ventr icular systolic function is normal. ATRIA The left atrium size is normal. The right atrium size is normal. The interatrial septum is intact wit h no evidence for an atrial septal defect or patent foramen ovale as noted on 2-D or Doppler imaging. AORTIC VALVE Not well visualized. Doppler and Color Flow revealed no significant aortic regurgitation. There is no significant aortic valvular stenosis. MITRAL VALVE The mitral valve is normal in structure and function. There is no evidence of mitral valve prolapse. There is no mitral valve stenosis. Doppler and Color Flow revealed no mitral valve regurgitation note d. TRICUSPID VALVE The tricuspid valve is normal in structure and function. Doppler and Color Flow revealed no tricuspid valve regurgitation noted. There is no tricuspid valve prolapse or vegetation. There is no tricuspid valve stenosis. PULMONIC VALVE PV structure not well visualized. Doppler and Color Flow revealed no pulmonic valvular regurgitation. There is no pulmonic valvular stenosis. GREAT VESSELS The aortic root is borderline enlarged. The ascending aorta is Mildly dilated at 3.8cm2. PERICARDIAL EFFUSION There is no evidence of significant pericardial effusion. Critical Notification Critical Value: No <Conclusion> The left ventricular systolic function is normal and the ejection fraction is within normal range. Th e Ejection Fraction is 60-65%. There is normal LV segmental wall motion. The ascending aorta is Mildly dilated at 3.8cm2. No significant valvular disease. Signed by : Willy Floyd, Electronically Approved : 02/05/2018 10:47:18
[2018-02-05] MEDS: ONDANSETRON PF 4 MG/2 ML VIAL. IV PRN (11:38)
[2018-02-05] MEDS ORDERED: LIDOCAINE 1% PF 30 ML VIAL. ONE (12:26)
[2018-02-05] MEDS ORDERED: IOHEXOL 300 MG/ML 100ML VIAL. ONE (12:41)
[2018-02-05] MEDS ORDERED: fentaNYL PF VIAL 100 MCG/2 ML VIAL ONE (13:08)
[2018-02-05] MEDS ORDERED: MIDAZOLAM HCL/PF 2 MG/2 ML VIAL. ONE ×2 (13:08→13:40)
[2018-02-05] MEDS ORDERED: HEPARIN for IV BOLUS 10,000 UNIT/10 ML VIAL. ONE (13:18)
[2018-02-05] MEDS ORDERED: NITROGLYCERIN 200 MCG/2 ML SYRINGE FOR CATH/VASC LAB. ONE (13:18)
[2018-02-05] MEDS ORDERED: VERAPAMIL 5 MG/2 ML VIAL. ONE (13:18)
[2018-02-05] MEDS ORDERED: HEPARIN for IV BOLUS 10,000 UNIT/10 ML VIAL. IART ONE (13:45)
[2018-02-05] MEDS ORDERED: NITROGLYCERIN 200 MCG/2 ML SYRINGE FOR CATH/VASC LAB. IART ONE (13:45)
[2018-02-05] MEDS ORDERED: VERAPAMIL 5 MG/2 ML VIAL. IART ONE (13:45)
[2018-02-05] MEDS ORDERED: LIDOCAINE 1% PF 30 ML VIAL. INJ ONE (14:00)
[2018-02-05] MEDS ORDERED: HEPARIN for IV BOLUS 10,000 UNIT/10 ML VIAL. IV ONE (14:00)
[2018-02-05] MEDS ORDERED: fentaNYL PF VIAL 100 MCG/2 ML VIAL IV ONE (14:15)
[2018-02-05] MEDS ORDERED: MIDAZOLAM HCL/PF 2 MG/2 ML VIAL. IV ONE (14:15)
--- NOTE | 2018-02-05 14:46 | CARD ---
MR#: [id number] Date of Study: 02/05/2018 Ordering Physician: JUAN ANTONIO MALAGON, Referring Physician: Lexi MANJARREZ Tech: RT Chalo (R) APPROVED REPORT Technologist: RT Chalo (R) Nurse: Sigrid Fair RN Procedure(s) performed: 1. Left heart catheterization, selective coronary angiography and left ventr iculography via right transradial approach 2. Instant wave free ratio (IFR) measurement to the left anterior descending artery stenosis Moderate sedation: 53 minutes INDICATION The indication(s) include : unstable angina . PROCEDURE NARRATIVE After explaining the risks, benefits and alternative options, informed consent was obtained from antonette ent. Patient was brought to the cardiac Stock Saw Operator and right wrist was prepped and draped in the usual fashion after confirming a positive modified Kennedy's test. Arterial access was obtained in the righ t radial artery and a 6 Argentine sheath was inserted. 6 Argentine JL 3.5 and 6 Argentine JR4 catheters were used to perform selective angiography of left and right coronary arteries. 6 Argentine pigtail catheter was used to perform left ventriculography. Since patient was found to have angiographically borderli ne significant stenosis involving the left anterior descending artery, a decision was made to perform physiologic assessment using Instant wave free ratio (IFR) measurement. The lesions in the ostial an d mid segments of the left anterior descending artery were crossed with a Volcanoverrata PressureWire and IFR measurement was made that came back in significant at 0.95. No interventions were performed. Patient tolerated the procedure well. Hemostasis was achieved using TR band. There were no immedi ate complications. The following findings were noted. FINDINGS 1. Hemodynamics: Left ventricular end-diastolic pressure of 12 mmHg. No pullback gradient across th e aortic valve. 2. Left ventriculography: Normal left ventricle systolic function with ejection fraction estimated at 60%. No significant mitral regurgitation seen. 3. Coronary angiography: a. The left main coronary artery arose from the left sinus of Valsalva, gave rise to the left anteri or descending and left circumflex arteries and did not show any significant stenosis. b. The left anterior descending artery showed 40% stenosis involving the ostial segment and 50% bifu rcation lesion involving the midsegment that were physiologically insignificant based on IFR measurem ent of 0.95. c. The left circumflex artery did not show any significant stenosis. d. The right coronary artery was a large and dominant vessel arising from the right sinus of Valsalv a that did not show any significant stenosis. Conclusion 1. Nonobstructive coronary artery disease involving the left anterior descending artery, confirmed p hysiologically insignificant with IFR measurement 2. Normal left ventricle systolic function with ejection fraction estimated at 60% Recommendations Cardiovascular risk factor modification Signed by : Vladimir Monge, Electronically Approved : 02/05/2018 14:45:43
[2018-02-05] MEDS ORDERED: IV 1/2 NORMAL SALINE 1,000 ML IV SCH (14:47)
[2018-02-05] MEDS ORDERED: ONDANSETRON PF 4 MG/2 ML VIAL. IV PRN (17:15)
[2018-02-05] MEDS: ATORVASTATIN CALCIUM 20 MG TABLET PO SCH ×2 (20:06→20:08)
[2018-02-05] MEDS: LABETALOL 20 MG/4 ML DISP.SYRIN. IVP PRN (20:07)
[2018-02-05 23:14] LABS: HEMOGLOBIN A1C 7.7 % (4.8-5.6)
[2018-02-06 03:30] VITALS: BP 178/115
[2018-02-06] MEDS: LABETALOL 20 MG/4 ML DISP.SYRIN. IVP PRN (03:37)
[2018-02-06 04:31] VITALS: BP 167/107
[2018-02-06 07:02] VITALS: BP 171/78
[2018-02-06 07:45] VITALS: BP 176/102
[2018-02-06] MEDS ORDERED: ATOR20TA58 PO (07:47)
[2018-02-06] MEDS ORDERED: AMLO5TAB4 PO (07:47)
[2018-02-06] MEDS ORDERED: METF500T16 PO (07:47)
[2018-02-06] MEDS: ASPIRIN 325 MG TABLET PO SCH (08:18)
[2018-02-06] MEDS: LOSARTAN POTASSIUM 50 MG TABLET. PO SCH (08:18)
[2018-02-06] MEDS: INSULIN LISPRO 300 UNITS/3 ML INSULN.PEN. SQ SCH ×3 (08:25→17:30)
[2018-02-06] MEDS: ACETAMINOPHEN 500 MG TABLET PO PRN (08:46)
--- NOTE | 2018-02-06 08:56 | PDOC ---
PROGRESS NOTES Subjective Subjective Patient feeling better this morning. Patient still has pain and left-sided chest 1-2 out of 10. Patient's blood pressures ran high last evening. Patient's blood sugars are improved but diabetes has been confirmed with hemoglobin A1c of 7.7. Metformin will be started 48 hours after cardiac catheter. Plan on DC IV fluids increasing activity adding blood pressure medication and monitoring blood sugars today. If patient stable at this evening possible discharge if okay with cardiology. Med rec done. Objective Objective Vital Signs Date Time Temp Pulse Resp B/P (MAP) Pulse Ox O2 Delivery O2 Flow Rate FiO2 02/06/18 08:18 71 176/102 02/06/18 07:45 98.4 18 94 Room Air 98.4 02/05/18 14:17 2.0 Intake and Output 02/06/18 07:00 Intake Total 450 ml Output Total 3700 ml Balance -3250 ml Intake Oral 450 ml Output Urine Total 3700 ml # Voids 2 Physical Exam Abdomen: Normal bowel sounds Heart: Regular rate Extremities: No edema General: Alert Lungs: Clear to auscultation Assessment Assessment Problems Medical Problems: (1) Chest pain Status: Acute 1. Chest pain - atypical, negative cardiac catheter 2. DM2 - newly diagnosed A1c 7.7 3. antiphospholipid antibody syndrome - stable on aspirin. 4. HTN 5. Obesity 6. Hyperlipidemia 7. Remote history of DVT and PE 8. Family history of coronary artery disease with sudden cardiac in father age 40 Plan Plan of Care Add amlodipine for blood pressure. Start metformin after 48 hours post-catheter. Discharge to home when stable. DC IV fluids increase activity. Comment Review of Relevant I have reviewed the following items kel (where applicable) has been applied. Labs Laboratory Tests Test 02/04/18 13:16 02/04/18 14:50 02/04/18 20:05 02/04/18 20:59 White Blood Count 7.2 x10^3/uL (4.0-11.0) Red Blood Count 4.93 x10^6/uL (4.30-5.70) Hemoglobin 15.9 g/dL (13.0-17.5) Hematocrit 44.3 % (39.0-53.0) Mean Corpuscular Volume 90 fL (79-100) Mean Corpuscular Hemoglobin 32 pg (25-35) Mean Corpuscular Hemoglobin Concent 36 g/dL (31-37) Red Cell Distribution Width 12.7 % (11.5-14.5) Platelet Count 194 x10^3/uL (140-400) Neutrophils (%) (Auto) 65 % (31-73) Lymphocytes (%) (Auto) 24 % (24-48) Monocytes (%) (Auto) 9 % (0-9) Eosinophils (%) (Auto) 2 % (0-3) Basophils (%) (Auto) 1 % (0-3) Neutrophils # (Auto) 4.7 x10^3uL (1.8-7.7) Lymphocytes # (Auto) 1.7 x10^3/uL (1.0-4.8) Monocytes # (Auto) 0.7 x10^3/uL (0.0-1.1) Eosinophils # (Auto) 0.1 x10^3/uL (0.0-0.7) Basophils # (Auto) 0.1 x10^3/uL (0.0-0.2) Prothrombin Time 13.2 SEC (11.7-14.0) Prothromb Time International Ratio 1.1 (0.8-1.1) Activated Partial Thromboplast Time 26 SEC (24-38) D-Dimer (Jessica) 0.51 ug/mlFEU (0.00-0.50) Sodium Level 143 mmol/L (136-145) Potassium Level 4.3 mmol/L (3.5-5.1) Chloride Level 105 mmol/L (98-107) Carbon Dioxide Level 26 mmol/L (21-32) Anion Gap 12 (6-14) Blood Urea Nitrogen 18 mg/dL (8-26) Creatinine 0.9 mg/dL (0.7-1.3) Estimated GFR (Cockcroft-Gault) 87.9 BUN/Creatinine Ratio 20 (6-20) Glucose Level 250 mg/dL (70-99) Calcium Level 9.4 mg/dL (8.5-10.1) Magnesium Level 1.9 mg/dL (1.8-2.4) Total Bilirubin 0.4 mg/dL (0.2-1.0) Aspartate Amino Transf (AST/SGOT) 26 U/L (15-37) Alanine Aminotransferase (ALT/SGPT) 59 U/L (16-63) Alkaline Phosphatase 105 U/L (46-116) Creatine Kinase 129 U/L (39-308) Creatine Kinase MB (Mass) 1.3 ng/mL (0.0-3.6) Creatine Kinase MB Relative Index 1.0 % (0-4) Troponin I Quantitative < 0.017 ng/mL (0.000-0.055) < 0.017 ng/mL (0.000-0.055) RE-Xrd-C-Type Natriuretic Peptide 40 pg/mL (0-124) Total Protein 7.4 g/dL (6.4-8.2) Albumin 3.5 g/dL (3.4-5.0) Albumin/Globulin Ratio 0.9 (1.0-1.7) Lipase 101 U/L (73-393) Urine Collection Type Unknown Urine Color Yellow Urine Clarity Clear Urine pH 5.5 Urine Specific [place] >=1.030 Urine Protein Negative mg/dL (NEG-TRACE) Urine Glucose (UA) >=1000 mg/dL (NEG) Urine Ketones (Stick) Negative mg/dL (NEG) Urine Blood Negative (NEG) Urine Nitrite Negative (NEG) Urine Bilirubin Negative (NEG) Urine Urobilinogen Dipstick 0.2 mg/dL (0.2 mg/dL) Urine Leukocyte Esterase Negative (NEG) Urine RBC 0 /HPF (0-2) Urine WBC 0 /HPF (0-4) Urine Bacteria 0 /HPF (0-FEW) Urine Mucus Mod /LPF Glucose (Fingerstick) 217 mg/dL (70-99) Test 02/05/18 02:30 02/05/18 06:29 02/05/18 07:07 02/05/18 11:15 Hemoglobin A1c 7.7 % (4.8-5.6) Troponin I Quantitative < 0.017 ng/mL (0.000-0.055) Triglycerides Level 208 mg/dL (0-150) Cholesterol Level 192 mg/dL (0-200) LDL Cholesterol, Calculated 119 mg/dL (0-100) VLDL Cholesterol, Calculated 42 mg/dL (0-40) Non-HDL Cholesterol Calculated 161 mg/dL (0-129) HDL Cholesterol 31 mg/dL (40-60) Cholesterol/HDL Ratio 6.2 Thyroid Stimulating Hormone (TSH) 2.249 uIU/mL (0.358-3.74) Glucose (Fingerstick) 168 mg/dL (70-99) 174 mg/dL (70-99) 168 mg/dL (70-99) Test 02/05/18 17:09 02/05/18 20:34 02/06/18 07:56 Glucose (Fingerstick) 156 mg/dL (70-99) 184 mg/dL (70-99) 163 mg/dL (70-99) Laboratory Tests Test 02/05/18 11:15 02/05/18 17:09 02/05/18 20:34 02/06/18 07:56 Glucose (Fingerstick) 168 mg/dL (70-99) 156 mg/dL (70-99) 184 mg/dL (70-99) 163 mg/dL (70-99) Medications Current Medications Aspirin (Children'S Aspirin) 324 mg 1X ONCE PO Last administered on at 13:37; Start 02/04/18 at 13:00; Stop 02/04/18 at 13:54; Status DC Nitroglycerin (Nitrostat) 0.4 mg PRN Q5MIN PRN SL CHEST PAIN Last administered on 02/05/18at 08:21; Start 02/04/18 at 13:45; Stop 02/06/18 at 08:03; Status DC Iohexol (Omnipaque 300 Mg/ml) 100 ml 1X ONCE IV ; Start 02/04/18 at 14:00; Stop 02/04/18 at 14:01; Status DC Info (CONTRAST GIVEN -- Rx MONITORING) 1 each PRN DAILY PRN MC SEE COMMENTS; Start 02/04/18 at 14:00; Stop 02/06/18 at 13:59 Ondansetron HCl (Zofran) 4 mg PRN Q8HRS PRN IV NAUSEA/VOMITING Last administered on 02/05/18at 11:38; Start 02/04/18 at 15:15; Stop 02/05/18 at 15 :14; Status DC Morphine Sulfate (Morphine Sulfate) 4 mg PRN Q6HRS PRN IV PAIN Last administered on 02/04/18at 15:55; Start 02/04/18 at 15:15; Stop 02/04/18 at 20 :19; Status DC Aspirin (Kacie Aspirin) 325 mg DAILY08 PO Last administered on 02/06/18at 08:18 ; Start 02/05/18 at 08:00 Losartan Potassium (Cozaar) 100 mg DAILY PO Last administered on 02/06/18at 08: 18; Start 02/05/18 at 09:00 Influenza Virus Vaccine (Afluria Trivalent [id number] Syringe) 0.5 ml ONCE ONCE VAX IM ; Start 02/05/18 at 09:00; Stop 02/05/18 at 09:01; Status DC Insulin Human Lispro (HumaLOG) 0-5 UNITS TIDWMEALS SQ ; Start 02/04/18 at 18:30 ; Stop 02/05/18 at 08:55; Status DC Dextrose (Dextrose 50%-Water Syringe) 12.5 gm PRN Q15MIN PRN IV SEE COMMENTS; Start 02/04/18 at 18:30; Stop 02/05/18 at 08:54; Status DC Labetalol HCl (Normodyne Iv Push) 10 mg PRN Q6HRS PRN IVP GIVE FOR SBP > 170 Last administered on 02/06/18at 03:37; Start 02/04/18 at 20:15 Acetaminophen (Tylenol) 1,000 mg PRN Q6HRS PRN PO HEADACHE Last administered on 02/05/18at 18:28; Start 02/04/18 at 20:15 Morphine Sulfate (Morphine Sulfate) 2 mg PRN Q4HRS PRN IV MODERATE PAIN Last administered on 02/05/18at 04:44; Start 02/04/18 at 20:15; Stop 02/06/18 at 08 :03; Status DC Morphine Sulfate (Morphine Sulfate) 4 mg PRN Q4HRS PRN IV SEVERE PAIN Last administered on 02/04/18at 20:32; Start 02/04/18 at 20:15; Stop 02/06/18 at 08 :03; Status DC Insulin Human Lispro (HumaLOG) 0-5 UNITS TIDWMEALS SQ Last administered on at 08:25; Start 02/05/18 at 09:00 Dextrose (Dextrose 50%-Water Syringe) 12.5 gm PRN Q15MIN PRN IV SEE COMMENTS; Start 02/05/18 at 09:00 Lidocaine HCl (Xylocaine 1% Pf 30ml Vial) 30 ml STK-MED ONCE .ROUTE ; Start at 12:26; Stop 02/05/18 at 12:27; Status DC Iohexol (Omnipaque 300 Mg/ml) 100 ml STK-MED ONCE .ROUTE ; Start 02/05/18 at 12 :41; Stop 02/05/18 at 12:42; Status DC Heparin Sodium/ Sodium Chloride 500 ml @ As Directed STK-MED ONCE .ROUTE ; Start 02/05/18 at 12:41; Stop 02/05/18 at 12:42; Status DC Fentanyl Citrate (Fentanyl 2ml Vial) 100 mcg STK-MED ONCE .ROUTE ; Start at 13:08; Stop 02/05/18 at 13:09; Status DC Midazolam HCl (Versed) 2 mg STK-MED ONCE .ROUTE ; Start 02/05/18 at 13:08; Stop 02/05/18 at 13:09; Status DC Heparin Sodium (Porcine) (Heparin Sodium) 10,000 unit STK-MED ONCE .ROUTE ; Start 02/05/18 at 13:18; Stop 02/05/18 at 13:19; Status DC Verapamil HCl (Verapamil) 5 mg STK-MED ONCE .ROUTE ; Start 02/05/18 at 13:18; Stop 02/05/18 at 13:19; Status DC Nitroglycerin (Nitroglycerin) 200 mcg STK-MED ONCE .ROUTE ; Start 02/05/18 at 13:18; Stop 02/05/18 at 13:19; Status DC Midazolam HCl (Versed) 2 mg STK-MED ONCE .ROUTE ; Start 02/05/18 at 13:40; Stop 02/05/18 at 13:41; Status DC Nitroglycerin (Nitroglycerin) 200 mcg 1X ONCE IART Last administered on at 14:10; Start 02/05/18 at 13:45; Stop 02/05/18 at 13:46; Status DC Verapamil HCl (Verapamil) 2.5 mg 1X ONCE IART Last administered on 02/05/18at 14:11; Start 02/05/18 at 13:45; Stop 02/05/18 at 13:46; Status DC Heparin Sodium (Porcine) (Heparin Sodium) 2,500 unit 1X ONCE IART Last administered on 02/05/18at 14:19; Start 02/05/18 at 13:45; Stop 02/05/18 at 13 :46; Status DC Heparin Sodium/ Sodium Chloride (HEPARIN for ARTERIAL LINE FLUSH) 1,000 unit 1X ONCE IART Last administered on 02/05/18at 14:05; Start 02/05/18 at 13:45; Stop 02/05/18 at 13:46; Status DC Heparin Sodium (Porcine) (Heparin Sodium) 4,000 unit 1X ONCE IV Last administered on 02/05/18at 14:18; Start 02/05/18 at 14:00; Stop 02/05/18 at 14 :02; Status DC Lidocaine HCl (Xylocaine 1% Pf 30ml Vial) 30 ml 1X ONCE INJ Last administered on 02/05/18at 14:05; Start 02/05/18 at 14:00; Stop 02/05/18 at 14:02; Status DC Midazolam HCl (Versed) 2 mg 1X ONCE IV Last administered on 02/05/18at 14:16; Start 02/05/18 at 14:15; Stop 02/05/18 at 14:20; Status DC Fentanyl Citrate (Fentanyl 2ml Vial) 100 mcg 1X ONCE IV Last administered on 02/05/18at 14:17; Start 02/05/18 at 14:15; Stop 02/05/18 at 14:20; Status DC Sodium Chloride 1,000 ml @ 60 mls/hr [id number] IV Last administered on at 15:10; Start 02/05/18 at 14:47; Stop 02/06/18 at 08:14; Status DC Atorvastatin Calcium (Lipitor) 40 mg QHS PO ; Start 02/05/18 at 21:00 Ondansetron HCl (Zofran) 4 mg PRN Q6HRS PRN IV NAUSEA/VOMITING; Start at 17:15 Amlodipine Besylate (Norvasc) 5 mg DAILY PO Last administered on 02/06/18at 08: 18; Start 02/06/18 at 09:00 Magnesium Citrate (Citroma) 296 ml 1X ONCE PO ; Start 02/06/18 at 09:00; Stop 02/06/18 at 09:01 Magnesium Hydroxide (Milk Of Magnesia) 2,400 mg 1X ONCE PO Last administered on 02/06/18at 08:19; Start 02/06/18 at 09:00; Stop 02/06/18 at 09:01 Active Scripts Active Norvasc (Amlodipine Besylate) 5 Mg Tablet 1 Tab PO DAILY Metformin Hcl 500 Mg Tablet 500 Mg PO BIDWMEALS 90 Days Atorvastatin Calcium 20 Mg Tablet 40 Mg PO QHS 90 Days Reported Aspirin 325 Mg Tablet 1 Tab PO DAILY Losartan Potassium 100 Mg Tablet 100 Mg PO DAILY Vitals/I & O Vital Sign - Last 24 Hours 02/05/18 02/05/18 02/05/18 02/05/18 14:11 14:17 14:19 19:05 Temp 97.4 97.4 Pulse 72 72 73 Resp 15 16 21 B/P (MAP) 183/104 195/106 (135) Pulse Ox 92 97 O2 Delivery Nasal Cannula Room Air Room Air O2 Flow Rate 2.0 02/05/18 02/05/18 02/05/18 02/05/18 20:00 20:07 20:10 20:33 Pulse 74 71 71 B/P (MAP) 183/93 183/92 (122) 139/83 (101) O2 Delivery Room Air 02/05/18 02/06/18 02/06/18 02/06/18 23:15 03:00 03:30 03:37 Temp 97.5 97.8 97.5 97.8 Pulse 70 67 71 71 Resp 20 20 B/P (MAP) 157/92 (113) 178/115 (136) 178/115 Pulse Ox 96 95 O2 Delivery Room Air Room Air 02/06/18 02/06/18 02/06/18 02/06/18 04:31 07:02 07:45 08:18 Temp 97.5 98.4 97.5 98.4 Pulse 71 67 71 71 Resp 16 18 B/P (MAP) 167/107 (127) 171/78 (109) 176/102 (126) 176/102 Pulse Ox 96 94 O2 Delivery Room Air Room Air 02/06/18 08:18 Pulse 71 B/P (MAP) 176/102 Intake and Output 02/05/18 02/05/18 02/06/18 15:00 23:00 07:00 Intake Total 300 ml 150 ml Output Total 1400 ml 2300 ml Balance -1100 ml -2150 ml JOHN ALVARENGA MD Feb 06, 2018 08:56
[2018-02-06] MEDS ORDERED: MAGNESIUM CITRATE 296 ML SOLUTION. PO ONE (09:00)
[2018-02-06] MEDS ORDERED: amLODIPine BESYLATE 5 MG TABLET PO SCH (09:00)
[2018-02-06] MEDS ORDERED: MAGNESIUM HYDROXIDE 2,400 MG/30 ML ORAL.SUSP. PO ONE (09:00)
[2018-02-06 10:00] VITALS: BP 153/94
[2018-02-06 14:27] VITALS: BP 140/91
[2018-02-06] MEDS ORDERED: ACETAMINOPHEN/CODEINE 300/30MG TABLET. PO PRN (15:00)
--- NOTE | 2018-02-06 15:37 | RAD ---
Cervical spine AP lateral open mouth like and flexion and extension views 02/06/2018. Reason for exam: Neck pain extending to the left shoulder. Alignment is normal. There is no apparent loss of vertebral body height or other evidence for fracture. There is probably mild disc narrowing at C6-7. No destructive process is seen. There is no obvious foraminal narrowing, although some of the right foramina are not optimally projected. Flexion and extension views show no instability. IMPRESSION: Mild degenerative changes. No acute findings. Electronically signed by: Monroe Nguyen Jr., MD (02/06/2018 3:34 PM) [facility] [place]
== END 2018-02-06 18:13 | disposition home or self-care (01) | DRG 287 ==
LOC: ER 12:49 → 2 NORTH 17:08
PROVIDERS: ADMIT Family Medicine; ATTEND Family Medicine
PROC: 4A023N7 Measurement of Cardiac Sampling and Pressure, Left Heart, Percutaneous Approach (ICD-10-PCS; principal; 2018-02-05)
PROC: B2111ZZ Fluoroscopy of Multiple Coronary Arteries using Low Osmolar Contrast (ICD-10-PCS; 2018-02-05)
PROC: B2151ZZ Fluoroscopy of Left Heart using Low Osmolar Contrast (ICD-10-PCS; 2018-02-05)
PROC: 4A033BC Measurement of Arterial Pressure, Coronary, Percutaneous Approach (ICD-10-PCS; 2018-02-05)
DX: I25.10 Atherosclerotic heart disease of native coronary artery without angina pectoris (principal); D68.61 Antiphospholipid syndrome; R07.89 Other chest pain; E66.01 Morbid (severe) obesity due to excess calories; I10 Essential (primary) hypertension; E78.5 Hyperlipidemia, unspecified; E11.9 Type 2 diabetes mellitus without complications; Z79.82 Long term (current) use of aspirin; Z88.0 Allergy status to penicillin; Z86.711 Personal history of pulmonary embolism; Z86.718 Personal history of other venous thrombosis and embolism; Z82.49 Family history of ischemic heart disease and other diseases of the circulatory system; Z90.49 Acquired absence of other specified parts of digestive tract; Z68.38 Body mass index [BMI] 38.0-38.9, adult
CPT/HCPCS: 36415; 71045; 71275; 72052; 80053; 80061; 81001; 82550; 82553; 82962; 83036; 83690; 83735; 83880; 84443; 84484; 85025; 85379; 85610; 85730; 90471; 90756; 93005; 93306; 93458; 93571; 96374; 99152; 99153; C1769; C1892; J1644; J1815; J2250; J2270; J2405; J3010; J3490; 99285-25; Q2035

== ENCOUNTER → 2018-05-10 | Outpatient (CLI) | payer BC ==
[~2018-05-10] MED LIST: AMLO5TAB4 PO; ASPI325T8 PO; ATOR20TA58 PO; LOSA100T14 PO; METF500T16 PO
--- NOTE | 2018-05-10 13:22 | RAD ---
Ultrasound venous Doppler INDICATION:RT LOWER LEG PAIN TECHNIQUE: Grayscale, color Doppler and spectral waveform ultrasound images of the right lower extremity deep veins obtained. COMPARISON: None FINDINGS: Hypoechoic filling defect is seen in the one of the 2 calf veins without evidence of blood flow. Rest of the interrogated deep veins are compressible and demonstrate evidence of blood flow with normal respiratory variation and response to augmentation. IMPRESSION: Occluding DVT in one of the calf veins. Findings were discussed with by certified neurodiagnostic technologist that time of exam. Electronically signed by: Obed Farrell DO (05/10/2018 1:18 PM) [id number]
== END | disposition home or self-care (01) ==
LOC: RAD 11:41
PROVIDERS: ATTEND Orthopaedic Surgery
DX: I82.4Z1 Acute embolism and thrombosis of unspecified deep veins of right distal lower extremity (principal)
CPT/HCPCS: 93971

== ENCOUNTER → 2019-12-15 | Outpatient (CLI) | payer BC ==
--- NOTE | 2019-12-15 17:42 | KCIC ---
4 view C-spine HISTORY: Neck pain AP lateral swimmer's and open-mouth views The vertebral bodies aligned. There is no loss of vertebral body stature. There is mild prevertebral soft tissue prominence at the C6 and C7 levels. There is marginal spurring at endplates at C6-C7. The C1-C2 relationship is normal. IMPRESSION: C6-C7 degenerative changes. No acute findings. Electronically signed by: Shivam Thurman III, MD (12/15/2019 5:39 PM) [id number]
== END ==
LOC: KCIC 15:35
PROVIDERS: ATTEND Family Medicine
DX: M47.812 Spondylosis without myelopathy or radiculopathy, cervical region (principal)
CPT/HCPCS: 72040

== ENCOUNTER → 2020-02-01 | Outpatient (CLI) | payer BC ==
--- NOTE | 2020-02-01 11:13 | KCIC ---
MRI Brain without contrast History: Neck pain, daily persistent headache, nausea, hypertension Technique: Multiplanar, multisequential noncontrast MR imaging was performed of the brain. Comparison: None Findings: There is no evidence of recent infarct or cytotoxic edema. The ventricles, sulci, and cisterns are within normal limits in size and configuration. There is no significant midline shift, intraaxial mass effect, or focal abnormal extra-axial fluid collection. There is mild scattered T2 and FLAIR hyperintense signal of the supratentorial parenchyma bilaterally. There is no significant hemosiderin deposition of the brain parenchyma. There is preservation of the major intracranial flow-voids at the skull base. The cerebellar tonsils are normal in location. There is no significant abnormality of the pineal gland or pituitary gland. There is mild to moderate bilateral ethmoid air cell and right maxillary mucosal thickening. The mastoid air cells are aerated. There is preserved marrow signal of the clivus. Impression: 1. There is mild scattered T2 and FLAIR hyperintense signal of the supratentorial parenchyma bilaterally. White matter changes can be seen in patients with migraine headaches if corresponding history. Sequela of chronic microvascular ischemic disease is another consideration especially given history of hypertension. Pattern is not particularly suggestive of an inflammatory demyelinating disease. 2. There is paranasal sinus mucosal thickening as stated. Electronically signed by: Manuel Sumner MD (02/01/2020 11:11 AM) [facility]
--- NOTE | 2020-02-01 11:22 | KCIC ---
MRI Cervical Spine Without Contrast History:Neck pain, daily persistent headache Technique: Multiplanar, multi sequential noncontrast MR imaging was performed of the cervical spine. Comparison: Cervical spine radiographs December 15, 2019 Findings: There is motion degradation. Cervical cord caliber is within normal limits, no expansile signal abnormality, limited evaluation for subtle signal change due to motion artifact. Cervical vertebral body stature and AP alignment are overall maintained. There is moderate degenerative disc disease at C6-7. There is no significant focal marrow edema. C2-C3: Neural foramina and spinal canal are adequate. C3-C4: There is fairly severe left facet degenerative change, to a lesser degree on the right. Spinal canal and right neural foramen are adequate. There is degree of left uncovertebral change, likely moderate to severe narrowing of the left neural foramen. C4-C5: There is very minimal disc osteophyte complex. Central canal is adequate about 11 to 12 mm. Neural foramina are adequate. Spinal facet degenerative change. C5-C6: There is bilateral facet degenerative change. Spinal canal and neural foramina are adequate. C6-C7: There is bulge/broad protrusion about to 3 mm AP. Central canal is borderline about 10 mm. There is bilateral facet degenerative change. There is uncovertebral degenerative change greater on the left. Right neural foramen is adequate. There is fairly severe narrowing of the left neural foramen. C7-T1: There is minimal disc osteophyte complex and tiny protrusion, central canal adequate about 13 mm. Neural foramina are adequate. Impression: 1. Facet and uncovertebral degenerative change contributes to more significant narrowing of the left C3-4 and C6-7 neural foramina. There is moderate C6-7 degenerative disc disease. There is mild spondylosis. Electronically signed by: Manuel Sumner MD (02/01/2020 11:19 AM) [facility]
== END ==
LOC: KCIC MRI 09:55
PROVIDERS: ATTEND Psychiatry & Neurology Neurology with Special Qualifications in Child Neurology
DX: I67.82 Cerebral ischemia (principal); G43.909 Migraine, unspecified, not intractable, without status migrainosus; J34.89 Other specified disorders of nose and nasal sinuses; M50.323 Other cervical disc degeneration at C6-C7 level; M51.24 Other intervertebral disc displacement, thoracic region; M48.02 Spinal stenosis, cervical region; M25.78 Osteophyte, vertebrae
CPT/HCPCS: 70551; 72141